=== PATIENT | male | born 1990 | race Caucasian/White ===

== ENCOUNTER 2024-02-22 21:45 | Emergency (ER) | payer OTHER ==
[~2024-02-22] VITALS: Ht 177.8 cm; Wt 96.2 kg
[2024-02-22 21:50] VITALS: BP 137/85; PULSE 93; RESP 15; TEMP 98.2; O2SAT 96
[2024-02-22] MEDS: ONDANSETRON 4 MG/2 ML VIAL IVP ONE (22:33)
[2024-02-22] MEDS: NACL 0.9% 1,000 ML IV SCH (22:33)
[2024-02-22] MEDS: KETOROLAC 30 MG/ML VIAL IVP ONE (22:34)
[2024-02-22 22:50] LABS: BASOPHILS % (AUTO) 0.4 % (0.0-2.0); EOSINOPHILS % (AUTO) 0.3 % (0.0-4.0); HEMATOCRIT 55.5 % (36-52); HEMOGLOBIN 18.9 g/dL (12.0-18.0); LYMPHOCYTES # (AUTO) 1.9 K/uL (2.0-11.5); LYMPHOCYTES % (AUTO) 20.4 % (20.5-51.1); MEAN CORPUSCULAR HEMOGLOBIN 29 pg (27-31); MEAN CORPUSCULAR HGB CONC 34 g/dL (33-37); MEAN CORPUSCULAR VOLUME 84.6 fL (80-94); MONOCYTES # (AUTO) 0.6 K/uL (0.8-1.0); MONOCYTES % (AUTO) 6.1 % (1.7-9.3); NEUTROPHILS # (AUTO) 6.7 K/uL (1.8-7.7); NEUTROPHILS % (AUTO) 72.8 % (42.2-75.2); PLATELET COUNT (AUTO) 253 K/uL (140-450); RED BLOOD CELL COUNT(AUTO) 6.56 MIL/uL (4.20-6.10); RED CELL DISTRIBUTION WIDTH 13.7 % (11.6-13.7); WHITE BLOOD COUNT (AUTO) 9.2 K/uL (4.8-10.8)
[2024-02-22 23:04] LABS: APPEARANCE,URINE CLEAR (CLEAR); BILIRUBIN,URINE NEGATIVE (NEGATIVE); BLOOD, URINE NEGATIVE (NEGATIVE); COLOR,URINE YELLOW (YELLOW); LEUKOCYTE ESTERASE ,URINE NEGATIVE (NEGATIVE); NITRITE, URINE NEGATIVE (NEGATIVE); PROTEIN,URINE NEGATIVE (NEGATIVE); UGLUCOSE NEGATIVE (NEGATIVE); UROBILINOGEN,URINE 0.2 EU/dL (0.2 - 1)
[2024-02-22 23:16] LABS: AMPHETAMINE, URINE NEGATIVE ng/ml (NEG <=1000); BARBITURATE, URINE NEGATIVE ng/ml (NEG <=200); BENZODIAZEPINE, URINE NEGATIVE ng/mL (NEG <=200); CANNABINOID, URINE NEGATIVE ng/mL (NEG <=50); COCAINE, URINE POSITIVE ng/mL (NEG <=300); OPIATE, URINE NEGATIVE ng/mL (NEG <=2000); PHENCYCLIDINE SCREEN,URINE NEGATIVE ng/mL (NEG <=25)
[2024-02-22 23:23] LABS: ANION GAP 18.2 (8-16); CALCIUM 9.5 mg/dL (8.5-10.1); CARBON DIOXIDE 24.3 mmol/L (21-32); CREATININE 1.1 mg/dL (0.6-1.3); POTASSIUM 3.5 mmol/L (3.5-5.1)
[2024-02-22 23:25] LABS: ALBUMIN 4.6 g/dL (3.4-5.0); BILIRUBIN,DIRECT 0.2 mg/dL (0.0-0.3); TOTAL PROTEIN, SERUM 8.3 g/dL (6.4-8.2)
[2024-02-22] MEDS ORDERED: DICYCLOMINE HCL LIQUID 10 MG/5 ML UDC ONE (23:52)
[2024-02-22] MEDS ORDERED: ALUMINUM HYD/MAG/SIMETHICONE 30 ML UDC ONE (23:52)
[2024-02-22] MEDS: METOCLOPRAMIDE 10 MG/2 ML INJ VIAL IVP ONE (23:55)
[2024-02-22] MEDS: DICYCLOMINE HCL LIQUID 20 MG, ALUMINUM HYD/MAG/SIMETHICONE 30 ML, LIDOCAINE VISCOUS 2% ... PO ONE (23:57)
[2024-02-23] MEDS: NACL 0.9% 1,000 ML IV ONE (00:06)
[2024-02-23] MEDS ORDERED: OMEP20EC11 PO (00:37)
[2024-02-23] MEDS ORDERED: METO-485 PO (00:37)
[2024-02-23 00:54] VITALS: BP 117/76; PULSE 83; RESP 15; TEMP 98; O2SAT 100
== END 2024-02-23 00:54 | disposition home or self-care (01) ==
LOC: MED 21:45
DX: K29.70 Gastritis, unspecified, without bleeding (principal); Z79.899 Other long term (current) drug therapy; Y90.0 Blood alcohol level of less than 20 mg/100 ml; R51.9 Headache, unspecified
CPT/HCPCS: 36415; 70450; 74176; 80048; 80076; 80305; 81003; 83690; 85025; 96361; 96374; 96375; 99285; G0482; J1885; J2405; J2765; J7030